=== PATIENT | female | born 1995 | race Caucasian/White ===

== ENCOUNTER 2016-08-31 00:04 | Emergency (ER) | payer OTHER ==
[~2016-08-31] VITALS: Ht 152.4 cm; Wt 70.5 kg
[2016-08-31 00:08] VITALS: TEMP 98.7
[2016-08-31] MEDS ORDERED: FLEXERIL 1010 MG/TAB PO (01:29)
[2016-08-31] MEDS ORDERED: ULTRAM 50MG TAB50 MG PO (01:29)
[2016-08-31 01:48] VITALS: BP 107/56; PULSE 85
== END 2016-08-31 01:55 | disposition home or self-care (01) ==
LOC: COL.ER 00:04
DX: S06.0X0A Concussion without loss of consciousness, initial encounter (principal); S16.1XXA Strain of muscle, fascia and tendon at neck level, initial encounter; S13.9XXA Sprain of joints and ligaments of unspecified parts of neck, initial encounter; S60.222A Contusion of left hand, initial encounter; V43.62XA Car passenger injured in collision with other type car in traffic accident, initial encounter; Y92.410 Unspecified street and highway as the place of occurrence of the external cause; R40.2362 Coma scale, best motor response, obeys commands, at arrival to emergency department; R40.2142 Coma scale, eyes open, spontaneous, at arrival to emergency department; R40.2252 Coma scale, best verbal response, oriented, at arrival to emergency department

== ENCOUNTER 2017-03-22 23:56 | Emergency (ER) | payer BC ==
[~2017-03-22] VITALS: Ht 152.4 cm; Wt 84.9 kg
[~2017-03-22 23:56] MED LIST: FLEXERIL 1010 MG/TAB PO; ULTRAM 50MG TAB50 MG PO
[2017-03-22 23:59] VITALS: BP 119/69; PULSE 73; TEMP 97.8
[2017-03-23] MEDS ORDERED: DOXYCYCLINE HY100 MG PO (00:20)
== END 2017-03-23 00:29 | disposition home or self-care (01) ==
LOC: COL.ER 23:56
DX: L03.115 Cellulitis of right lower limb (principal); Z90.89 Acquired absence of other organs

== ENCOUNTER 2017-06-21 18:25 | Emergency (ER) | payer OTHER ==
[~2017-06-21] VITALS: Ht 152.4 cm; Wt 81.8 kg
[~2017-06-21 18:25] MED LIST changes: +DOXYCYCLINE HY100 MG PO
[2017-06-21 18:29] VITALS: TEMP 98.1
[2017-06-21 20:09] LABS: BASO # 0.1 (0.0-0.2); BASO % 1.3 % (0.0-2.0); EOS # 0.3 (0.0-0.7); EOS % 3.1 % (0-4.0); GRAN # 4.8 (1.4-6.5); GRAN % 55.5 % (42.2-75.2); HEMATOCRIT 42.4 % (35.0-45.0); HEMOGLOBIN 13.9 g/dl (12.0-15.0); LYMPH # 2.8 (1.2-3.4); LYMPH % 32.6 % (20.0-51.0); MEAN CELL VOLUME 83 fl (80.0-95.0); MEAN CORPUSCULAR HEMOGLOBIN 27 pg (26.0-32.0); MEAN CORPUSCULAR HGB CONC 33 g/dl (33.0-37.0); MEAN PLATELET VOLUME 10.5 fl (7.4-10.4); MONO # 0.6 (0.1-0.6); MONO % 7.3 % (1.7-9.3); PLATELET COUNT 272 K/mm3 (130-400); RED BLOOD COUNT 5.13 M/mm3 (4.10-5.30); WHITE BLOOD COUNT 8.7 K/mm3 (4.8-10.8)
[2017-06-21 20:27] LABS: ADJUSTED CALCIUM 8.8 mg/dL (8.4-10.2); ALANINE AMINOTRANSFERASE 34 U/L (9-52); ALBUMIN 4.4 gm/dL (3.5-5.0); ALKALINE PHOSPHATASE 67 U/L (50-136); ANION GAP 9 mmol/L (7-16); BILIRUBIN,TOTAL 0.4 mg/dL (0.0-1.0); BLOOD UREA NITROGEN 8 mg/dL (7-17); CALCIUM 9.1 mg/dL (8.4-10.2); CARBON DIOXIDE 25 mmol/L (22-30); CHLORIDE 103 mmol/L (98-107); CREATININE, serum 0.59 mg/dL (0.52-1.25); GLUCOSE 100 mg/dL (74-106); LIPASE 129 U/L (23-300); POTASSIUM 3.3 mmol/L (3.4-5.0); SODIUM 137 mmol/L (137-145); TOTAL PROTEIN 7.4 gm/dL (6.4-8.2)
[2017-06-21 20:29] LABS: C-REACTIVE PROTEIN < 0.5 mg/dL (0.0-0.9)
[2017-06-21 21:57] LABS: COLLECTION METHOD CLEAN CATCH
[2017-06-21 22:04] VITALS: BP 101/64; PULSE 77
[2017-06-21 22:05] LABS: MUCOUS Present /lpf; PH 5 (5-8); URINE APPEARANCE Clear; URINE BACTERIA Rare /hpf; URINE BILIRUBIN Negative (NEGATIVE); URINE BLOOD Negative (NEGATIVE); URINE COLOR Straw; URINE GLUCOSE Negative (NEGATIVE); URINE KETONE Negative (NEGATIVE); URINE LEUKOCYTE ESTERASE Trace (NEGATIVE); URINE PROTEIN(semi-quant) Negative (NEGATIVE); URINE UROBILINOGEN Negative (NEGATIVE)
== END 2017-06-21 22:06 | disposition home or self-care (01) ==
LOC: COL.ER 18:25
PROVIDERS: Family Medicine
DX: R10.31 Right lower quadrant pain (principal)
CPT/HCPCS: J1170; J2405; J7030; J7050; Q9967

== ENCOUNTER 2018-02-08 11:44 | Emergency (ER) | payer BC ==
[~2018-02-08] VITALS: Ht 152.4 cm; Wt 88.9 kg
[2018-02-08 11:47] VITALS: TEMP 98.7
[2018-02-08] MEDS ORDERED: ZOFRAN 4MG T4 MG/TAB PO (13:22)
[2018-02-08 14:14] VITALS: BP 122/87; PULSE 87
== END 2018-02-08 14:35 | disposition home or self-care (01) ==
LOC: COL.ER 11:44
DX: R19.7 Diarrhea, unspecified (principal); R11.10 Vomiting, unspecified; R10.30 Lower abdominal pain, unspecified
CPT/HCPCS: J2405; J7030; Q9967

== ENCOUNTER → 2018-09-15 | Outpatient (CLI) | payer BC ==
[~2018-09-15] MED LIST changes: +ZOFRAN 4MG T4 MG/TAB PO
== END ==
LOC: COL.RAD 13:30
DX: K76.0 Fatty (change of) liver, not elsewhere classified (principal); R59.0 Localized enlarged lymph nodes; R05 Cough; R91.8 Other nonspecific abnormal finding of lung field
CPT/HCPCS: Q9967

== ENCOUNTER 2020-03-31 17:03 | Emergency (ER) | payer BC ==
[~2020-03-31] VITALS: Ht 152.4 cm; Wt 77.3 kg
[2020-03-31 17:28] VITALS: BP 120/82; TEMP 98.4
[2020-03-31 19:31] VITALS: PULSE 77
== END 2020-03-31 19:35 | disposition home or self-care (01) ==
LOC: COL.ER 17:03
DX: S91.011A Laceration without foreign body, right ankle, initial encounter (principal); W26.8XXA Contact with other sharp object(s), not elsewhere classified, initial encounter; Y99.0 Civilian activity done for income or pay

== ENCOUNTER → 2020-04-08 | Outpatient (CLI) | payer OTHER ==
[2020-04-08 17:12] VITALS: BP 124/81; PULSE 80
== END ==
LOC: COL.ER 16:29
DX: Z48.02 Encounter for removal of sutures (principal)

== ENCOUNTER 2020-05-18 02:02 | Emergency (ER) | payer SELFPAY ==
[~2020-05-18] VITALS: Ht 152.4 cm; Wt 72.7 kg
[2020-05-18 02:06] VITALS: TEMP 98.2
[2020-05-18 02:45] LABS: COLLECTION METHOD CLEAN CATCH
[2020-05-18 02:50] LABS: MUCOUS Present /lpf; PH 7 (5-8); SQUAMOUS EPITHELIAL 0-2 /hpf; URINE APPEARANCE Clear; URINE BACTERIA Rare /hpf; URINE BILIRUBIN Negative (NEGATIVE); URINE BLOOD Negative (NEGATIVE); URINE COLOR Straw; URINE GLUCOSE Negative (NEGATIVE); URINE KETONE Negative (NEGATIVE); URINE LEUKOCYTE ESTERASE Negative (NEGATIVE); URINE NITRATE Negative (NEGATIVE); URINE PROTEIN(semi-quant) Negative (NEGATIVE); URINE RBC 0-2 /hpf; URINE UROBILINOGEN Negative (NEGATIVE)
[2020-05-18 03:38] VITALS: BP 110/70; PULSE 70
== END 2020-05-18 03:38 | disposition home or self-care (01) ==
LOC: COL.ER 02:02
PROVIDERS: Emergency Medicine
DX: S09.90XA Unspecified injury of head, initial encounter (principal); S16.1XXA Strain of muscle, fascia and tendon at neck level, initial encounter; V43.52XA Car driver injured in collision with other type car in traffic accident, initial encounter

== ENCOUNTER 2020-05-21 15:54 | Emergency (ER) | payer OTHER ==
[~2020-05-21] VITALS: Ht 152.4 cm; Wt 68.2 kg
[2020-05-21 15:59] VITALS: TEMP 98.4
[2020-05-21 16:26] VITALS: BP 116/70; PULSE 70
== END 2020-05-21 16:27 | disposition home or self-care (01) ==
LOC: COL.ER 15:54
DX: S06.0X0A Concussion without loss of consciousness, initial encounter (principal); Z88.1 Allergy status to other antibiotic agents; V89.2XXA Person injured in unspecified motor-vehicle accident, traffic, initial encounter